=== PATIENT | male | born 1980 ===

== ENCOUNTER 2021-06-19 17:55 | Emergency (ER) | payer MEDICAID ==
[~2021-06-19] VITALS: Ht 170.2 cm; Wt 84.8 kg
--- NOTE | 2021-06-19 18:06 | NUR ---
NIL X1.
[2021-06-19 18:13] VITALS: BP 131/91
--- NOTE | 2021-06-19 18:42 | NUR ---
CALLED PATIENT TO PERFORM VA'S, PATIENT NIL.
--- NOTE | 2021-06-19 18:59 | NUR ---
HARD TILE SETTER: CALLED FOR ROOM, NO ANSWER
--- NOTE | 2021-06-19 19:25 | NUR ---
CALLED IN THE LOBBY, NO ANSWER
== END 2021-06-19 19:39 | disposition left against medical advice (07) ==
LOC: ED 19:33
DX: S01.81XA Laceration without foreign body of other part of head, initial encounter (principal); Z53.21 Procedure and treatment not carried out due to patient leaving prior to being seen by health care provider; X58.XXXA Exposure to other specified factors, initial encounter; Y93.89 Activity, other specified; Y92.89 Other specified places as the place of occurrence of the external cause; Y99.8 Other external cause status